=== PATIENT | male | born 1945 | race Caucasian/White ===

== ENCOUNTER 2022-01-16 09:28 | Day surgery (SDC) | payer MEDICARE, BC, SELFPAY ==
[2022-01-16] MEDS: Tropicam./Phenyleph. (1/2.5%) 5 ML BTL OD ×3 (10:21→10:35)
[2022-01-16 10:24] VITALS: BP 148/87; PULSE 68; RESP 20; TEMP 36.7; O2SAT 98
[2022-01-16] MEDS: Tetracaine 0.5% 4 ML BTL OD (11:26)
[2022-01-16] MEDS: Duovisc Viscoelastic System EACH 1 EACH (11:27)
[2022-01-16] MEDS: Balanced Salt Soln.-PLUS 500 ML BAG (11:27)
[2022-01-16] MEDS: Lidocaine 2% Jelly 6 ML SYR (11:28)
[2022-01-16] MEDS: Povidone-Iodine Ophth 30 ML BTL (11:29)
[2022-01-16 11:45] VITALS: BP 169/82; PULSE 63; RESP 16; TEMP 36.5; O2SAT 97
--- NOTE | 2022-01-16 11:46 | W.ANESPOSTOP ---
Postoperative Evaluation Date, Time and Location Date Performed: 01/16/22 Time Performed: 11:46 Patient Location: Day Surgery Unit Vital Signs Most Recent Imported Vital Signs: Most Recent Vital Signs Temp Pulse Resp BP Pulse Ox 36.7 C 68 20 148/87 H 98 01/16/22 10:24 01/16/22 10:24 01/16/22 10:24 01/16/22 10:24 01/16/22 10:24 Most Recent Manually Entered Vital Signs: Adult Blood Pressure: 153/100 Heart Rate: 64 Respirations: 12 Oxygen Saturation (%): 97 Temperature (C): 36.3 C Pain Score (0-10 Scale): 0 Pain Score Most Recent Pain Score: Most Recent Pain Score Pain Level 0 01/16/22 10:24 Assessment Mental Status: Awake (Alert & Oriented to Patient Baseline) Airway and Respiratory Function: Patent airway with normal (patient baseline) respiratory exam Cardiovascular Function: Hemodynamically Stable Hydration Status: Adequately Hydrated Nausea & Vomiting: No Nausea or Vomiting Pain: Pt. Denies Any Pain Peripheral Nerve Block: Patient did not receive a nerve block
[2022-01-16 11:47] VITALS: BP 153/100; PULSE 64; RESP 12; TEMPC 36.3; O2SAT 97
--- NOTE | 2022-01-16 11:48 | W.PM.DSUDISC ---
Discharge Plan Disposition Patient Disposition: HOME Condition: Good Discharge Details Attending Provider: Kev Valverde Primary Care Provider: Unknown,Unknown Home Meds and New Rx's Prescriptions: No Action mesalamine 4 gram/60 mL Enema [address] DIRECTED 0RF simethicone [Gas-X Extra Strength] 125 mg Capsule 125 mg PO DAILY 0RF diphenhydramine HCl 25 mg Capsule 25 mg PO QHS PRN0RF lisinopril 5 mg Tablet 2.5 - 5 mg PO DAILY 0RF mirtazapine 15 mg Tablet 15 mg PO QHS 0RF cetirizine 10 mg Capsule 10 mg PO DAILY PRN0RF Belsomra 10 mg Tablet 10 mg PO QHS 0RF [id number] 2-1-200-1 mg Tablet 1 tab PO HS 0RF diazepam [Valium] 2 mg Tablet 2 mg PO PRN PRN0RF Discharge Instructions Stand Alone Forms: Post-op Topical Cataract, Press Ganey (DSU) Discharge Orders Discharge Orders: Discharge Order (Routine); Ordered 01/16/22 Ordered By: Kev Valverde DS: Diagnosis Discharge Diagnosis (1) Nuclear sclerotic cataract of right eye: Status: Resolved (2) Cortical cataract of right eye: Status: Resolved (3) Posterior subcapsular age-related cataract, right eye: Status: Resolved
--- NOTE | 2022-01-16 11:49 | ROE_ITS ---
Date of service: 01/16/22 Time of Service: 11:49 Operative Note Operative Note DATE OF PROCEDURE: 01/16/22 PRE-OP DIAGNOSIS: Nuclear/cortical/posterior subcapsular cataract, right eye POST-OP DIAGNOSIS: same PROCEDURE: Cataract extraction using phacoemulsification with intraocular lens implant, right eye SURGEON: Kev Valverde ANESTHESIA TYPE: Local By Surgeon and MAC Refer to Anesthesia Record ESTIMATED BLOOD LOSS: 0 PATHOLOGY: none sent COMPLICATIONS: None Patient was transported to: same day Patient's condition: stable Implants: [employer] Rodrigo/JUAN Tecnis [id number] Indications: Progressive visual loss due to cataract, right eye Procedure Description: CATARACT SURGERY OPERATIVE REPORT PREOPERATIVE DIAGNOSIS: 1. Nuclear/cortical/posterior subcapsular cataract, right eye POSTOPERATIVE DIAGNOSIS: Same OPERATION: 1. Cataract extraction using phacoemulsification with posterior chamber intraocular lens implant, right eye. IOL: IOL [employer] Cutter Machine/Model: Rodrig[employer] Rodrig[employer] / JUAN Tecnis [id number] IOL Power: + 19.5 diopters IOL Serial Number: [id number] Optic Diameter: 6.0mm Haptic/Overall Diameter: 13.0mm PHACO INFO: [place] [employer] Vision System with OZil and Active Fluidics Cumulative Dispersed Energy (CDE): 7.75 seconds SURGEON: Kev Valverde MD, MARY ANESTHESIA: Monitored Anesthesia Care (MAC), with local sub-tenon's anesthetic infiltration COMPLICATIONS: None SPECIMENS: None INDICATIONS FOR PROCEDURE: The patient is a 76-year-old gentleman with history of diminished visual acuity in his right eye secondary to the development of nuclear/cortical/posterior subcapsular cataract. He is significantly symptomatic that he desires cataract surgery and attempt to improve and maximize his vision. PROCEDURE: The correct surgical eye was identified and marked as the right eye and the pupil was dilated in the preoperative area using mydriatics and cycloplegics. The dilated pupil size was 7.0 mm. He elected to proceed without oral sedation. The patient was brought to the operating room where ca rdiopulmonary monitoring was instituted and surgical time-out was performed, confirming the correct operative eye and IOL power. Topical anesthesia was administered and ophthalmic povidone-iodine 5% was instilled into the conjunctival fornices. Lidocaine gel was applied to the cornea and the jayson-ocular area was prepped with Betadine 10% solution and draped in the usual sterile fashion for intraocular surgery, including an aperture drape. A Tegaderm transparent film dressing was cut in half and used to cover the lashes and lid margins. Care was taken to sequester the lashes and lid margins under the Tegaderm dressing. A lid speculum was placed between the lids of the operative eye and the [place] Lux[employer] Revalia operating microscope was maneuvered into position. Beatrice scissors were then used to make a conjunctival buttonhole approximately 6mm posterior to the limbus in the inferonasal quadrant. Blunt dissection was carried out to expose bare sclera, and a blunt-tipped sub-tenon?s anesthesia cannula was introduced and passed posteriorly along the globe where non- preserved plain lidocaine was injected into posterior sub-Tenon?s space. A sideport knife was used to make a paracentesis port inferotemporally. Intraocular phenylephrine/lidocaine was injected into the anterior chamber. The anterior chamber was filled with viscoelastic. A 2.4mm keratome knife was used to create a half-thickness groove at the limbus and then to construct a three- plane near-clear corneal tunnel extending 2.0mm into clear cornea superiortemporally. A flap was raised on the anterior capsule and capsulorhexis forceps were used to complete a continuous curvilinear capsulorhexis of 5.0 mm. Balanced salt solution was then used to perform cortical cleaving hydrodissection and nuclear hydrodelineation until the lens could be freely rotated within the capsular bag. The lens nucleus was then disassembled and removed within the capsular bag and iris plane using phacoemulsification. Residual cortical material was removed using the I/A handpiece. The posterior capsule was carefully polished to remove as much residual lens epithelial cells as safely possible. The capsular bag was then inflated and the anterior chamber deepened with viscoelastic. The lens implant described above was inserted into the capsular bag using the JUAN [place] Injector. A Kuglen hook was used to dial the IOL into position. Residual viscoelastic was then removed first from posterior to the IOL, then from the anterior chamber using the I/A handpiece. The lens implant was noted to center nicely within the capsular bag. The incisions were stromally hydrated, and the anterior chamber was reformed using BSS. Then 0.5cc of moxifloxacin 1.0mg/ml were injected into the capsular bag and anterior chamber. The incisions were checked with a Weck spear and found to be secure. Several drops of ophthalmic povidone-iodine 5% were then applied to the eye followed by two drops of Imprimis combination prednisolone/moxifloxacin/nepafenac solution. The drapes were removed and a clear plastic protective eye shield was placed over the eye. The patient was then returned to Same Day Surgery in stable condition.
[2022-01-16 12:58] VITALS: BMI 35.8
--- NOTE | 2022-01-16 12:58 | W.ANESPRE ---
General Info Date of Service Date Performed: 01/16/22 Height: 5 ft 7 in Weight: 103.7 kg Body Mass Index (BMI): 35.8 Surgical Procedure: Operation Date: 01/16/22 12:25 Proposed Procedure Side Surgeon p Cataract Extraction with IOL Implant Right Kev Valverde MD Actual Procedure Side Surgeon p Cataract Extraction with IOL Implant Right Kev Valverde MD Pre-Op Diagnosis Post-Op Diagnosis CATARACT OF RIGHT EYE CATARACT OF RIGHT EYE Meds Allergies and Home Medications Allergies Allergy/AdvReac Type Severity Reaction Status Date / Time doxepin Allergy Intermediate Itching Verified 01/16/22 10:04 animal dander Allergy Verified 01/16/22 10:04 cigarette smoke Allergy Verified 01/16/22 10:04 grass pollen Allergy Verified 01/16/22 10:04 milk Allergy Verified 01/16/22 10:04 Sulfa (Sulfonamide Allergy Verified 01/16/22 10:04 Antibiotics) wheat Allergy Verified 01/16/22 10:04 Home Medication Medication Instructions Recorded cetirizine 10 mg capsule 10 mg PO DAILY PRN 01/12/22 diphenhydramine HCl 25 mg capsule 25 mg PO QHS PRN 01/12/22 lisinopril 5 mg tablet 2.5 - 5 mg PO DAILY 01/12/22 melatonin 2 mg-5HTP 1 mg-valer 200 1 tab PO HS 01/12/22 mg-folic ac 1 mg-diet no.28 tablet mesalamine 4 gram/60 mL enema 4 g [place] DIRECTED 01/12/22 mirtazapine 15 mg tablet 15 mg PO QHS 01/12/22 simethicone 125 mg capsule (Gas-X 125 mg PO DAILY 01/12/22 Extra Strength) suvorexant 10 mg tablet (Belsomra) 10 mg PO QHS 01/12/22 diazepam 2 mg tablet (Valium) 2 mg PO PRN PRN 01/13/22 PFSH Active Problems Active Problems: Problem Status Onset Code Nuclear sclerotic cataract of right eye H25.11 Cortical cataract of right eye H26.9 Posterior subcapsular age-related cataract, right eye H25.041 Medical History Medical History Abdominal aortic aneurysm (AAA) without rupture Allergic rhinitis Back ache Cataract Chronic fatigue syndrome Diverticula of colon SIDDHARTH (generalized anxiety disorder) Hyperlipemia Hypertension Impotence Insomnia Irritable bowel syndrome Obesity Obstructive sleep apnea syndrome Prostate cancer Psychophysiologic insomnia Ulcerative colitis Vitamin D deficiency Surgical History Surgical History (Updated 01/16/22 @ 11:49 by Kev Valverde MD) History of colonoscopy History of prostatectomy History of surgery Hx of appendectomy Hx of tonsillectomy Tobacco Smoking/Tobacco Use Status: Former Tobacco Use Substance Use Substance use type: does not use Vital Signs and Lab Results Vital Signs Most Recent Vital Signs in EMR: Most Recent Vital Signs Temp Pulse Resp BP Pulse Ox 36.5 C 63 16 169/82 H 97 01/16/22 11:45 01/16/22 11:45 01/16/22 11:45 01/16/22 11:45 01/16/22 11:45 Lab Results Blood Type / Crossmatch: No Data to Display Complete Blood Count: No Data to Display Complete Metabolic Panel: No Data to Display Liver Function Panel: No Data to Display Coagulation Panel: No Data to Display Cardiac Panel: No Data to Display Arterial Blood Gas: No Data to Display Venous Blood Gas: No Data to Display Pancreas Panel: No Data to Display Thyroid Panel: No Data to Display Infectious Disease: No Data to Display Blood Cultures: No Data to Display Toxicology Panel: No Data to Display Anesthesia Assessment and Plan Anesthesia History Personal History: No History of Anesthesia Complications Family History: Family History Unknown Exercise Tolerance Exercise Tolerance: Metabolic Equivalents>4 Pertinent Negatives Pertinent Negatives: No Symptoms of GERD, No Major Cardiovascular Symptoms or Complaints, No Major Pulmonary Symptoms or Complaints and No History of CVA/TIA Cardiac & Pulmonary Exam Cardiac Exam: Normal S1/S2 Heart Sounds Pulmonary Exam: Clear Bilateral Breath Sounds Implantable Cardiac Device Does patient have a Pacemaker or an ICD?: No Airway Exam Known Difficult Airway: No Mallampati Class: 1 Mouth Opening: Normal (> 3cm) Thyromental Distance: Greater than 3 cm Neck Range of Motion: Full ROM Neck Circumference: Normal Teeth Condition: Normal Dentition ASA Classification ASA Score: ASA 2 Emergency Case?: No NPO Status NPO Status: NPO Clears >2 hours, Solids >8 hours Anesthesia Plan Resuscitation Status: Full Code Anesthesia Technique: MAC Anesthesia Airway Planned: Natural Airway Monitors Used: Standard Monitors
== END 2022-01-16 12:16 | disposition home or self-care (01) ==
PROVIDERS: Visit Provider Ophthalmology
PROC: (CPT 66984; principal; 2022-01-16 12:15)
DX: H25.041 Posterior subcapsular polar age-related cataract, right eye (principal); G47.33 Obstructive sleep apnea (adult) (pediatric); E55.9 Vitamin D deficiency, unspecified; F41.1 Generalized anxiety disorder
CPT/HCPCS: 66984; V2632

== ENCOUNTER 2022-01-30 09:43 | Day surgery (SDC) | payer MEDICARE, BC, SELFPAY ==
--- NOTE | 2022-01-30 07:41 | W.ANESPRE ---
General Info Date of Service Date Performed: 01/30/22 Height: 5 ft 7 in Weight: 103.7 kg Body Mass Index (BMI): 35.8 Surgical Procedure: Operation Date: 01/30/22 11:25 Proposed Procedure Side Surgeon p Cataract Extraction with IOL Implant Left Kev Valverde MD Meds Allergies and Home Medications Allergies Allergy/AdvReac Type Severity Reaction Status Date / Time doxepin Allergy Intermediate Itching Verified 01/26/22 15:17 animal dander Allergy Verified 01/26/22 15:17 cigarette smoke Allergy Verified 01/26/22 15:17 grass pollen Allergy Verified 01/26/22 15:17 milk Allergy Verified 01/26/22 15:17 Sulfa (Sulfonamide Allergy Verified 01/26/22 15:17 Antibiotics) wheat Allergy Verified 01/26/22 15:17 Home Medication Medication Instructions Recorded cetirizine 10 mg capsule 10 mg PO DAILY PRN 01/12/22 diphenhydramine HCl 25 mg capsule 25 mg PO QHS PRN 01/12/22 lisinopril 5 mg tablet 2.5 - 5 mg PO DAILY 01/12/22 melatonin 2 mg-5HTP 1 mg-valer 200 1 tab PO HS 01/12/22 mg-folic ac 1 mg-diet no.28 tablet mesalamine 4 gram/60 mL enema 4 g GA DIRECTED 01/12/22 mirtazapine 15 mg tablet 15 mg PO QHS 01/12/22 simethicone 125 mg capsule (Gas-X 125 mg PO DAILY 01/12/22 Extra Strength) suvorexant 10 mg tablet (Belsomra) 10 mg PO QHS 01/12/22 diazepam 2 mg tablet (Valium) 2 mg PO PRN PRN 01/13/22 Current Visit Medications: Current Medications Generic Name Dose Route Start Last Admin Trade Name Freq PRN Reason Stop Dose Admin Acetaminophen 1,000 mg 01/30/22 06:00 Acetaminophen 500 Mg Tab PO Q4H PRN PRN Miscellaneous Medication 0 ml 01/30/22 06:00 Prednisolone 1%, Moxifloxacin 0.5%, Nepafenac 0.1% 5ml Btl OS DIRECTED [facility] Miscellaneous Medication 0 ml 01/30/22 06:00 Tropicam./Phenyleph. (1/2.5%) 5 Ml Btl OS DIRECTED PADMINI Tetracaine HCl 0 ml 01/30/22 06:00 Tetracaine 0.5% 4 Ml Btl OS DIRECTED [facility] PFSH Active Problems Active Problems: Problem Status Onset Code Posterior subcapsular age-related cataract of left eye H25.042 Nuclear sclerotic cataract of left eye H25.12 Cortical cataract of left eye H26.9 Nuclear sclerotic cataract of right eye H25.11 Cortical cataract of right eye H26.9 Posterior subcapsular age-related cataract, right eye H25.041 Medical History Medical History Abdominal aortic aneurysm (AAA) without rupture Allergic rhinitis Back ache Cataract Chronic fatigue syndrome Diverticula of colon SIDDHARTH (generalized anxiety disorder) Hyperlipemia Hypertension Impotence Insomnia Irritable bowel syndrome Obesity Obstructive sleep apnea syndrome Prostate cancer Psychophysiologic insomnia Ulcerative colitis Vitamin D deficiency Surgical History Surgical History History of colonoscopy History of prostatectomy History of surgery Hx of appendectomy Hx of tonsillectomy Tobacco Smoking/Tobacco Use Status: Former Tobacco Use Substance Use Substance use type: does not use Vital Signs and Lab Results Vital Signs Most Recent Vital Signs in EMR: Temp Pulse Resp BP Pulse Ox 36.7 C 62 16 146/70 H 98 01/30/22 10:09 01/30/22 10:09 01/30/22 10:09 01/30/22 10:09 01/30/22 10:09 Lab Results Blood Type / Crossmatch: No Data to Display Complete Blood Count: No Data to Display Complete Metabolic Panel: No Data to Display Liver Function Panel: No Data to Display Coagulation Panel: No Data to Display Cardiac Panel: No Data to Display Arterial Blood Gas: No Data to Display Venous Blood Gas: No Data to Display Pancreas Panel: No Data to Display Thyroid Panel: No Data to Display Infectious Disease: No Data to Display Blood Cultures: No Data to Display Toxicology Panel: No Data to Display Anesthesia Assessment and Plan Anesthesia History Personal History: No History of Anesthesia Complications Family History: Family History Unknown Exercise Tolerance Exercise Tolerance: Metabolic Equivalents>4 Pertinent Negatives Pertinent Negatives: No Symptoms of GERD, No Major Pulmonary Symptoms or Complaints and No History of CVA/TIA Cardiac & Pulmonary Exam Cardiac Exam: Normal S1/S2 Heart Sounds Pulmonary Exam: Clear Bilateral Breath Sounds Implantable Cardiac Device Does patient have a Pacemaker or an ICD?: No Airway Exam Known Difficult Airway: No Mallampati Class: 1 Mouth Opening: Normal (> 3cm) Thyromental Distance: Greater than 3 cm Neck Range of Motion: Full ROM Neck Circumference: Normal Teeth Condition: Normal Dentition ASA Classification ASA Score: ASA 3 Emergency Case?: No NPO Status NPO Status: NPO Clears >2 hours, Solids >8 hours Anesthesia Plan Resuscitation Status: Full Code Anesthesia Technique: MAC Anesthesia Airway Planned: Natural Airway Monitors Used: Standard Monitors Preoperative Comments:: denies any health history change. Plan same as last time.
[2022-01-30 10:09] VITALS: BP 146/70; PULSE 62; RESP 16; TEMP 36.7; O2SAT 98
[2022-01-30] MEDS: Tropicam./Phenyleph. (1/2.5%) 5 ML BTL OS ×3 (10:22→10:32)
[2022-01-30 10:27] VITALS: BMI 35.8
[2022-01-30] MEDS: Tetracaine 0.5% 4 ML BTL OS (10:56)
[2022-01-30] MEDS: Povidone-Iodine Ophth 30 ML BTL (11:01)
[2022-01-30] MEDS: Lidocaine 2% Jelly 6 ML SYR (11:04)
[2022-01-30] MEDS: Balanced Salt Soln.-PLUS 500 ML BAG (11:06)
[2022-01-30] MEDS: Duovisc Viscoelastic System EACH 1 EACH (11:07)
[2022-01-30 11:23] VITALS: BP 168/81; PULSE 67; RESP 16; TEMP 36; O2SAT 97
--- NOTE | 2022-01-30 11:23 | W.PM.DSUDISC ---
Discharge Plan Disposition Patient Disposition: HOME Condition: Good Discharge Details Attending Provider: Kev Valverde Primary Care Provider: Unknown,Unknown Home Meds and New Rx's Prescriptions: No Action mesalamine 4 gram/60 mL Enema 4 g [place] DIRECTED 0RF simethicone [Gas-X Extra Strength] 125 mg Capsule 125 mg PO DAILY 0RF diphenhydramine HCl 25 mg Capsule 25 mg PO QHS PRN0RF lisinopril 5 mg Tablet 2.5 - 5 mg PO DAILY 0RF mirtazapine 15 mg Tablet 15 mg PO QHS 0RF cetirizine 10 mg Capsule 10 mg PO DAILY PRN0RF Belsomra 10 mg Tablet 10 mg PO QHS 0RF [id number] 2-1-200-1 mg Tablet 1 tab PO HS 0RF diazepam [Valium] 2 mg Tablet 2 mg PO PRN PRN0RF Discharge Instructions Stand Alone Forms: Post-op Topical Cataract, Press Ganey (DSU) Discharge Orders Discharge Orders: Discharge Order (Routine); Ordered 01/30/22 Ordered By: Kev Valverde DS: Diagnosis Discharge Diagnosis (1) Posterior subcapsular age-related cataract of left eye: Status: Resolved (2) Nuclear sclerotic cataract of left eye: Status: Resolved (3) Cortical cataract of left eye: Status: Resolved
--- NOTE | 2022-01-30 11:24 | ROE_ITS ---
Date of service: 01/30/22 Time of Service: 11:24 Operative Note Operative Note DATE OF PROCEDURE: 01/30/22 PRE-OP DIAGNOSIS: Nuclear/cortical/posterior subcapsular cataract, left eye POST-OP DIAGNOSIS: same PROCEDURE: Cataract extraction using phacoemulsification with intraocular lens implant, left eye SURGEON: Kev Valverde ANESTHESIA TYPE: Local By Surgeon and MAC Refer to Anesthesia Record PATHOLOGY: none sent COMPLICATIONS: None Patient was transported to: same day Patient's condition: stable Implants: Rodrig[employer] Rodrig[employer] / [employer] Tecnis [id number] Indications: Progressive decreased vision due to cataract, left eye Procedure Description: CATARACT SURGERY OPERATIVE REPORT PREOPERATIVE DIAGNOSIS: 1. Nuclear/cortical/posterior subcapsular cataract, left eye POSTOPERATIVE DIAGNOSIS: Same OPERATION: 1. Cataract extraction using phacoemulsification with posterior chamber intraocular lens implant, left eye. IOL: IOL [employer] Journeyman/Model: [employer] Rodrig[employer] / JUAN Tecnis [id number] IOL Power: + 20.0 diopters IOL Serial Number: [id number] Optic Diameter: 6.0 mm Haptic/Overall Diameter: 13.0 mm PHACO INFO: [place] [employer] Vision System with OZil and Active Fluidics Cumulative Dispersed Energy (CDE): 6.91 seconds SURGEON: Kev Valverde MD, MARY ANESTHESIA: Monitored A [facility] (MAC), with local sub-tenon's anesthetic infiltration COMPLICATIONS: None SPECIMENS: None INDICATIONS FOR PROCEDURE: The patient is a 76-year-old gentleman with history of diminished visual acuity in both eyes secondary to the development of bilateral nuclear/cortical/posterior subcapsular cataract. He has already undergone cataract surgery in the right eye and is doing well postoperatively. He now presents for cataract surgery in the left eye. PROCEDURE: The correct surgical eye was identified and marked as the left eye and the pupil was dilated in the preoperative area using mydriatics and cycloplegics. The dilated pupil size was 7.0 mm. He elected to proceed without oral sedation. The patient was brought to the operating room where cardiopulmonary monitoring was instituted and surgical time-out was performed, confirming the correct operative eye and IOL power. Topical anesthesia was administered and ophthalmic povidone-iodine 5% was instilled into the conjunctival fornices. Lidocaine gel was applied to the cornea and the jayson-ocular area was prepped with Betadine 10% solution and draped in the usual sterile fashion for intraocular surgery, including an aperture drape. A Tegaderm transparent film dressing was cut in half and used to cover the lashes and lid margins. Care was taken to sequester the lashes and lid margins under the Tegaderm dressing. A lid speculum was placed between the lids of the operative eye and the [place] Lux[employer] Revalia operating microscope was maneuvered into position. Beatrice scissors were then used to make a conjunctival buttonhole approximately 6mm posterior to the limbus in the inferonasal quadrant. Blunt dissection was c arried out to expose bare sclera, and a blunt-tipped sub-tenon?s anesthesia cannula was introduced and passed posteriorly along the globe where non- preserved plain lidocaine was injected into posterior sub-Tenon?s space. A sideport knife was used to make a paracentesis port superiorly/superiortemporally. Intraocular phenylephrine/lidocaine was injected int the anterior chamber.. The anterior chamber was filled with viscoelastic. A 2.4mm keratome knife was used to create a half-thickness groove at the limbus and then to construct a three-plane near-clear corneal tunnel extending 2.0mm into clear cornea at the 3:00 position. A flap was raised on the anterior capsule and capsulorhexis forceps were used to complete a continuous curvilinear capsulorhexis of 5.0 mm. Balanced salt solution was then used to perform cortical cleaving hydrodissection and nuclear hydrodelineation until the lens could be freely rotated within the capsular bag. The lens nucleus was then disassembled and removed within the capsular bag and iris plane using phacoemulsification. Residual cortical material was removed using the 45-degree angled silicone I/A tip with 0.3mm port. The posterior capsule was carefully polished to remove as much residual lens epithelial cells as safely possible. The capsular bag was then inflated and the anterior chamber deepened with viscoelastic. The lens implant described above was inserted into the capsular bag using the JUAN [place] Injector. A Kuglen hook was used to dial the IOL into position. Residual viscoelastic was then removed first from posterior to the IOL, then from the anterior chamber using the I/A handpiece. The lens implant was noted to center nicely within the capsular bag. The incisions were stromally hydrated, and the anterior chamber was reformed using BSS. Then 0.5cc of moxifloxacin 1.0mg/ml were injected into the capsular bag and anterior chamber. The incisions were checked with a Weck spear and found to be secure. Several drops of ophthalmic povidone-iodine 5% were then applied to the eye followed by two drops of Imprimis combination prednisolone/moxifloxacin/nepafenac solution. The drapes were removed and a clear plastic protective eye shield was placed over the eye. The patient was then returned to Same Day Surgery in stable condition.
--- NOTE | 2022-01-30 12:00 | W.ANESPOSTOP ---
Postoperative Evaluation Date, Time and Location Date Performed: 01/30/22 Time Performed: 12:00 Patient Location: Day Surgery Unit Vital Signs Most Recent Imported Vital Signs: Most Recent Vital Signs Temp Pulse Resp BP Pulse Ox 36.0 C L 67 16 168/81 H 97 01/30/22 11:23 01/30/22 11:23 01/30/22 11:23 01/30/22 11:23 01/30/22 11:23 Pain Score Most Recent Pain Score: Most Recent Pain Score Pain Level 0 01/30/22 11:23 Assessment Mental Status: Awake (Alert & Oriented to Patient Baseline) Airway and Respiratory Function: Patent airway with normal (patient baseline) respiratory exam Cardiovascular Function: Hemodynamically Stable Hydration Status: Adequately Hydrated Nausea & Vomiting: No Nausea or Vomiting Pain: Pt. Denies Any Pain Peripheral Nerve Block: Patient did not receive a nerve block
== END 2022-01-30 11:48 | disposition home or self-care (01) ==
PROVIDERS: Visit Provider Ophthalmology
PROC: (CPT 66984; principal; 2022-01-30 11:15)
DX: H25.042 Posterior subcapsular polar age-related cataract, left eye (principal); G47.33 Obstructive sleep apnea (adult) (pediatric); E55.9 Vitamin D deficiency, unspecified; I10 Essential (primary) hypertension
CPT/HCPCS: 66984; V2632